=== PATIENT | male | born 1995 | race Caucasian/White ===

== ENCOUNTER 2016-09-06 07:50 | Emergency (ER) | payer MEDICAID ==
[~2016-09-06 07:50] MED LIST: CIPRO PO; CONCERTA PO; NO MEDICATIONS; ZOFRAN ODT4 MG PO
== END 2016-09-06 09:29 | disposition left against medical advice (07) ==
LOC: CED 07:50
DX: Z53.21 Procedure and treatment not carried out due to patient leaving prior to being seen by health care provider (principal)